=== PATIENT | male | born 1945 | race Two or more races ===

== ENCOUNTER 2023-03-16 13:28 | Emergency (ER) | payer BC, OTHER ==
[~2023-03-16] VITALS: Ht 167.6 cm; Wt 84.0 kg
[2023-03-16] MEDS ORDERED: SODIUM CHLORIDE 0.9% 1,000 ML IV ONE (13:45)
[2023-03-16 14:40] LABS: Basophils # (auto) 0 10 ^3/uL (0-0.2); Basophils % (auto) 0.2 % (0.0-2.0); Eosinophils # (auto) 0 10 ^3/uL (0-0.8); Eosinophils % (auto) 0.6 % (0.0-7.0); Hematocrit 31.3 % (41.0-53.0); Hemoglobin 10.5 g/dL (13.5-17.5); Lymphocytes # (auto) 0.1 10 ^3/uL (0.4-5.4); Lymphocytes % (auto) 1.6 % (10.0-50.0); Mean Corpuscular Hemoglobin 30.8 pg (28.0-32.0); Mean Corpuscular Hgb Conc. 33.4 g/dL (32.0-36.0); Mean Corpuscular Volume 92.2 fL (80.0-100.0); Monocytes # (auto) 0.3 10 ^3/uL (0-1.3); Monocytes % (auto) 6.2 % (0.0-12.0); Neutrophils # (auto) 4.6 10 ^3/uL (1.6-8.6); Neutrophils % (auto) 91.4 % (37.0-80.0); Red Blood Cells 3.39 10^6/uL (4.5-5.90); Red Cell Distribution Width 15.5 % (11.8-14.3); White Blood Cell 5.1 10^3/uL (4.4-10.8)
[2023-03-16 14:53] LABS: Albumin 3.5 g/dL (3.4-5.0); Calcium 8.1 mg/dL (8.5-10.1); Potassium 4.2 mmol/L (3.5-5.1)
[2023-03-16 14:56] LABS: BUN/Creatinine Ratio 23.1 (10.0-20.0); Bilirubin, Total 0.6 mg/dL (0.2-1.0); Total Protein 6.4 g/dL (6.4-8.2)
[2023-03-16 17:40] VITALS: BP 129/72; PULSE 68; RESP 16; TEMP 97.9; O2SAT 96
== END 2023-03-16 17:43 | disposition home or self-care (01) ==
LOC: EDBD 13:28 → ER 13:28
DX: R51.9 Headache, unspecified (principal); Z85.46 Personal history of malignant neoplasm of prostate
CPT/HCPCS: 36415; 70450; 80053; 84484; 85025; 99284; J7030

== ENCOUNTER 2023-10-26 17:28 | Inpatient (IN) | payer BC, MEDICARE ==
[~2023-10-26] VITALS: Ht 177.8 cm; Wt 69.1 kg
[2023-10-26 17:53] VITALS: PULSE 55; RESP 16; O2SAT 93
[2023-10-26 18:52] LABS: Basophils # (auto) 0 10 ^3/uL (0-0.2); Basophils % (auto) 0.3 % (0.0-2.0); Eosinophils # (auto) 0.3 10 ^3/uL (0-0.8); Eosinophils % (auto) 3.4 % (0.0-7.0); Hematocrit 32.8 % (41.0-53.0); Lymphocytes % (auto) 11.7 % (10.0-50.0); Mean Corpuscular Hgb Conc. 33.4 g/dL (32.0-36.0); Mean Corpuscular Volume 95.9 fL (80.0-100.0); Monocytes # (auto) 0.7 10 ^3/uL (0-1.3); Monocytes % (auto) 8.1 % (0.0-12.0); Neutrophils # (auto) 6.4 10 ^3/uL (1.6-8.6); Neutrophils % (auto) 76.5 % (37.0-80.0); Red Blood Cells 3.42 10^6/uL (4.5-5.90); Red Cell Distribution Width 13.7 % (11.8-14.3); White Blood Cell 8.4 10^3/uL (4.4-10.8)
[2023-10-26 18:54] LABS: Chloride 108 mmol/L (98-107); Potassium 4.4 mmol/L (3.5-5.1); Sodium 138 mmol/L (136-145)
[2023-10-26 18:55] LABS: Anion Gap 6 (5-15); Calcium 8.6 mg/dL (8.7-10.4); Carbon Dioxide 24 mmol/L (20-30)
[2023-10-26 19:00] LABS: BUN/Creatinine Ratio 15.4 (10.0-20.0); Blood Urea Nitrogen 23 mg/dL (9-23); Glucose 89 mg/dL (74-106)
[2023-10-26 19:30] VITALS: PULSE 56; RESP 14; O2SAT 95
[2023-10-26] MEDS ORDERED: ACETAMINOPHEN 325 MG TAB PO PRN (22:00)
[2023-10-26] MEDS ORDERED: DOCUSATE SOD 100 MG CAP PO PRN (22:00)
[2023-10-26] MEDS ORDERED: HYDROcodone-ACET 5/325MG TAB PO PRN (22:00)
[2023-10-26] MEDS ORDERED: ONDANSETRON HCL 4 MG/2 ML VIAL IV PRN (22:00)
[2023-10-26] MEDS: ATORVASTATIN 20 MG TAB PO SCH (22:48)
[2023-10-26] MEDS: SODIUM CHLORIDE 0.9% 1,000 ML IV SCH (22:50)
[2023-10-26] MEDS ORDERED: NITROGLYCERIN 0.4 MG SL TAB SL PRN (23:00)
[2023-10-26] MEDS ORDERED: MORPHINE SULFATE INJ 2 MG/ml SYRG IV PRN (23:00)
[2023-10-27] VITALS (11 sets, daily range): BP systolic 101–174; BP diastolic 71–95; PULSE 45–78; RESP 17–22; TEMP 97.7–98.6; O2SAT 92–97
[2023-10-27] MEDS: hydrALAZINE HCL 20 MG/ML VL IV PRN (04:06)
[2023-10-27 06:06] LABS: Basophils # (auto) 0 10 ^3/uL (0-0.2); Basophils % (auto) 0.4 % (0.0-2.0); Eosinophils # (auto) 0.3 10 ^3/uL (0-0.8); Eosinophils % (auto) 5.8 % (0.0-7.0); Hematocrit 34.7 % (41.0-53.0); Hemoglobin 11.7 g/dL (13.5-17.5); Lymphocytes # (auto) 1.5 10 ^3/uL (0.4-5.4); Lymphocytes % (auto) 26.6 % (10.0-50.0); Mean Corpuscular Hemoglobin 32.1 pg (28.0-32.0); Mean Corpuscular Hgb Conc. 33.7 g/dL (32.0-36.0); Mean Corpuscular Volume 95.3 fL (80.0-100.0); Monocytes # (auto) 0.5 10 ^3/uL (0-1.3); Neutrophils # (auto) 3.4 10 ^3/uL (1.6-8.6); Neutrophils % (auto) 58.2 % (37.0-80.0); Red Blood Cells 3.65 10^6/uL (4.5-5.90); Red Cell Distribution Width 13.4 % (11.8-14.3); White Blood Cell 5.8 10^3/uL (4.4-10.8)
[2023-10-27 06:26] LABS: Alanine Aminotransferase 15 U/L (7-40); Alkaline Phosphatase 44 U/L (46-116); Anion Gap 7 (5-15); Aspartate Aminotransferase 17 U/L (13-40); BUN/Creatinine Ratio 13.6 (10.0-20.0); Bilirubin, Total 0.6 mg/dL (0.2-1.0); Blood Urea Nitrogen 17 mg/dL (9-23); Carbon Dioxide 24 mmol/L (20-30); Chloride 107 mmol/L (98-107); Glucose 109 mg/dL (74-106); Potassium 3.5 mmol/L (3.5-5.1); Sodium 138 mmol/L (136-145); Total Protein 6.1 g/dL (5.7-8.2)
[2023-10-27 08:52] LABS: Triglycerides 169 mg/dL (< 150)
[2023-10-27 08:53] LABS: LDL Cholesterol 46 mg/dL (< 100)
[2023-10-27 08:54] LABS: Cholesterol 127 mg/dL (< 200); HDL Cholesterol 58 mg/dL (40-59)
[2023-10-27] MEDS: ASPirin 81 mg TAB PO SCH (09:39)
[2023-10-27] MEDS: FAMOTIDINE (10MG/ML) 2ML VL IV SCH (09:40)
[2023-10-27 23:06] LABS: Urine Bacteria NONE SEEN /hpf (None Seen); Urine Blood 1+ /uL (Negative); Urine Clarity Clear (Clear); Urine Color Straw (Yellow); Urine Protein, UAD Negative (Negative); Urine Urobilinogen Normal (Negative); Urine WBC 45 /hpf (0 - 3); Urine pH 6.5 (5.0-8.0)
[2023-10-28] VITALS (9 sets, daily range): BP systolic 118–176; BP diastolic 72–88; PULSE 53–88; RESP 18–20; TEMP 97.3–97.7; O2SAT 94–98
[2023-10-28] MEDS: hydrALAZINE HCL 25 MG TAB PO SCH (10:00)
[2023-10-28 12:44] LABS: Basophils # (auto) 0 10 ^3/uL (0-0.2); Basophils % (auto) 0.3 % (0.0-2.0); Eosinophils # (auto) 0.1 10 ^3/uL (0-0.8); Eosinophils % (auto) 1.8 % (0.0-7.0); Hematocrit 36.6 % (41.0-53.0); Hemoglobin 12.5 g/dL (13.5-17.5); Lymphocytes # (auto) 1.3 10 ^3/uL (0.4-5.4); Lymphocytes % (auto) 18.6 % (10.0-50.0); Mean Corpuscular Hemoglobin 32.5 pg (28.0-32.0); Mean Corpuscular Hgb Conc. 34.1 g/dL (32.0-36.0); Mean Corpuscular Volume 95.5 fL (80.0-100.0); Monocytes # (auto) 0.8 10 ^3/uL (0-1.3); Monocytes % (auto) 11.2 % (0.0-12.0); Neutrophils # (auto) 4.6 10 ^3/uL (1.6-8.6); Neutrophils % (auto) 68.1 % (37.0-80.0); Red Blood Cells 3.83 10^6/uL (4.5-5.90); Red Cell Distribution Width 13.8 % (11.8-14.3); White Blood Cell 6.8 10^3/uL (4.4-10.8)
[2023-10-28 13:05] LABS: Alanine Aminotransferase 15 U/L (7-40); Albumin 4.8 g/dL (3.2-4.8); Alkaline Phosphatase 51 U/L (46-116); Anion Gap 9 (5-15); Aspartate Aminotransferase 24 U/L (13-40); BUN/Creatinine Ratio 9.7 (10.0-20.0); Bilirubin, Total 0.8 mg/dL (0.2-1.0); Blood Urea Nitrogen 13 mg/dL (9-23); Calcium 9.8 mg/dL (8.5-10.1); Carbon Dioxide 26 mmol/L (20-30); Chloride 102 mmol/L (98-107); Glucose 137 mg/dL (74-106); Potassium 3.9 mmol/L (3.5-5.1); Sodium 137 mmol/L (136-145); Total Protein 7.5 g/dL (5.7-8.2)
[2023-10-28] MEDS ORDERED: METO25TA5 PO (17:21)
[2023-10-28] MEDS ORDERED: SIMV40TA18 PO (17:21)
[2023-10-28] MEDS ORDERED: FINA5TAB4 PO (17:21)
[2023-10-28] MEDS ORDERED: DOXA4TAB83 PO (17:21)
[2023-10-28] MEDS ORDERED: SIMV20TA20 PO (17:21)
[2023-10-28] MEDS ORDERED: FERR325T24 PO (17:21)
[2023-10-28] MEDS ORDERED: VENL75CA3 PO (17:21)
[2023-10-28] MEDS: cefTRIAXone 1GM/50ML D5W 50 ML IV ONE (18:15)
[2023-10-28] MEDS: ZOLPIDEM TARTRATE 5 MG TAB PO PRN (21:16)
[2023-10-29 05:00] VITALS: BP 167/102; PULSE 81; RESP 18; TEMP 98.2; O2SAT 95
[2023-10-29 09:00] VITALS: BP 150/91; PULSE 97; RESP 18; O2SAT 96
[2023-10-29] MEDS: cefTRIAXone 1GM/50ML D5W 50 ML IV SCH (09:01)
[2023-10-29 13:00] VITALS: BP 131/68; PULSE 108; RESP 19; TEMP 97.9; O2SAT 94
[2023-10-29 16:39] VITALS: BP 146/93; PULSE 120; RESP 19; TEMP 97.7; O2SAT 94
[2023-10-29 20:00] VITALS: PULSE 115; RESP 16
[2023-10-29 21:02] VITALS: BP 144/90; PULSE 99; RESP 18; TEMP 97.9; O2SAT 96
[2023-10-30] VITALS (8 sets, daily range): BP systolic 128–157; BP diastolic 66–96; PULSE 71–135; RESP 18; TEMP 97.9–98.5; O2SAT 94–98
[2023-10-30] MEDS: METOPROLOL TARTRATE 25 MG TAB PO SCH (10:14)
[2023-10-30] MEDS: dilTIAZem 120MG ER CAP PO ONE (14:38)
[2023-10-31 01:00] VITALS: BP 139/67; PULSE 63; PULSE 66; RESP 18; TEMP 98; O2SAT 97
[2023-10-31 05:00] VITALS: BP 147/76; PULSE 66; RESP 18; TEMP 98.1; O2SAT 97
[2023-10-31 06:43] LABS: Basophils # (auto) 0 10 ^3/uL (0-0.2); Basophils % (auto) 0.5 % (0.0-2.0); Eosinophils # (auto) 0.3 10 ^3/uL (0-0.8); Eosinophils % (auto) 4.9 % (0.0-7.0); Hematocrit 39.4 % (41.0-53.0); Hemoglobin 13.5 g/dL (13.5-17.5); Lymphocytes # (auto) 1.8 10 ^3/uL (0.4-5.4); Lymphocytes % (auto) 25.1 % (10.0-50.0); Mean Corpuscular Hemoglobin 32.8 pg (28.0-32.0); Mean Corpuscular Hgb Conc. 34.2 g/dL (32.0-36.0); Mean Corpuscular Volume 96.1 fL (80.0-100.0); Monocytes # (auto) 0.9 10 ^3/uL (0-1.3); Monocytes % (auto) 12.7 % (0.0-12.0); Neutrophils % (auto) 56.8 % (37.0-80.0); Nucleated Red Blood Cells % 0.1 %; Red Cell Distribution Width 14.1 % (11.8-14.3); White Blood Cell 7.1 10^3/uL (4.4-10.8)
[2023-10-31 07:03] LABS: Alanine Aminotransferase 19 U/L (7-40); Alkaline Phosphatase 56 U/L (46-116); Anion Gap 7 (5-15); BUN/Creatinine Ratio 15.4 (10.0-20.0); Blood Urea Nitrogen 21 mg/dL (9-23); Calcium 9.9 mg/dL (8.5-10.1); Carbon Dioxide 28 mmol/L (20-30); Chloride 105 mmol/L (98-107); Glucose 115 mg/dL (74-106); Potassium 4.2 mmol/L (3.5-5.1); Sodium 140 mmol/L (136-145)
[2023-10-31 07:04] LABS: Albumin 4.5 g/dL (3.2-4.8); Aspartate Aminotransferase 26 U/L (13-40); Bilirubin, Total 0.5 mg/dL (0.2-1.0); Total Protein 6.6 g/dL (5.7-8.2)
[2023-10-31 07:32] VITALS: BP 144/98; PULSE 75; RESP 16; TEMP 97.2; O2SAT 97
[2023-10-31 07:50] VITALS: BP 144/98; PULSE 75; RESP 16; TEMP 97.2; O2SAT 97
[2023-10-31 08:00] VITALS: PULSE 59
[2023-10-31] MEDS: dilTIAZem 120MG ER CAP PO SCH (10:29)
[2023-10-31] MEDS ORDERED: DILT120T8 PO (11:04)
[2023-10-31] MEDS ORDERED: METO25TA5 PO (11:04)
[2023-10-31 11:42] VITALS: BP 118/82; PULSE 63; RESP 16; TEMP 97.4; O2SAT 96
== END 2023-10-31 15:17 | disposition home or self-care (01) | DRG 308 ==
LOC: ER 17:28 → EDBD 17:28 → EDUNIT# 17:28 → TELE-WESTW 22:53 → TELE 22:53 → TELE-WESTW 23:38
PROVIDERS: ADMIT Nurse Practitioner Family; ATTEND Internal Medicine
DX: R00.1 Bradycardia, unspecified (principal); N17.0 Acute kidney failure with tubular necrosis; N30.00 Acute cystitis without hematuria; I95.2 Hypotension due to drugs; I47.10 Supraventricular tachycardia, unspecified; R55 Syncope and collapse; R73.03 Prediabetes; E78.5 Hyperlipidemia, unspecified; N18.9 Chronic kidney disease, unspecified; K21.9 Gastro-esophageal reflux disease without esophagitis; I12.9 Hypertensive chronic kidney disease with stage 1 through stage 4 chronic kidney disease, or unspecified chronic kidney disease; I35.0 Nonrheumatic aortic (valve) stenosis; D64.9 Anemia, unspecified; I77.9 Disorder of arteries and arterioles, unspecified; Z71.3 Dietary counseling and surveillance; Z79.899 Other long term (current) drug therapy; T50.905A Adverse effect of unspecified drugs, medicaments and biological substances, initial encounter; E86.0 Dehydration
CPT/HCPCS: 36415; 70450; 71045; 80048; 80053; 80061; 81001; 83036; 84443; 84484; 85025; 87086; 93005; 93306; 93886; 97110; 97116; 97163; 97530; G0378; J3490